=== PATIENT | male | born 1990 | race Two or more races ===

== ENCOUNTER 2023-05-01 21:42 | Emergency (ER) | payer BC, SELFPAY ==
[2023-05-01 21:47] VITALS: BP 178/102; PULSE 82; RESP 18; TEMP 36.9; O2SAT 100; BMI 28.1
[2023-05-01 21:49] VITALS: BP 178/102
[2023-05-01 21:52] VITALS: BP 162/100
--- NOTE | 2023-05-01 22:01 | PC.NURSE ---
pt presents to ED because patient states that he keeps having head rushes. when asking patient to elaborate pt states that he has been having the head rushes and feels like his heart is racing on and off for the last year. pt states that it has been worse over the last couple days. pt states that he thinks it may be panic attacks because he did start a new job and has been taking on different roles throughout his job and thinks it may be related. pt does not have a history of panic attacks.
--- NOTE | 2023-05-01 22:11 | ECG_ITS ---
[facility] Test Date: 2023-05-01 Pat Name: FARTUN LANDRY Department: Room: - Gender: Male Home Care Chaplain: : 1990 Requested By: [id number] Order Number: [id number] Reading MD: JATINDER LLANOS Measurements Intervals [place] Rate: 84 P: 73 PA: 142 QRS: 87 QRSD: 96 T: 47 QT: 358 QTc: 399 Interpretive Statements 1100 Sinus rhythm 9110 normal ECG No previous ECG available for comparison Electronically Signed On 05-02-2023 7:06:57 EDT by JATINDER LLANOS
--- NOTE | 2023-05-01 22:12 | ED.GENADUL1 ---
HPI - General Adult General Chief complaint: Neuro Symptoms/Deficit Stated complaint: lightheadness, panic Time Seen by Provider: 05/01/23 21:52 Source: patient Mode of arrival: walk-in History of Present Illness HPI narrative: This 32-year-old male who does not have a family physician presents for evaluation of intermittent episodes of head cao he states that out of the blue he will have a rushing sensation in the back of his head. Approximately a year ago when he was laced in a position at work that caused him some anxiety. Since that time he has had several additional episodes. He states at times he feels like his heart is beating fast and he has to sit down. He has not had any syncopal events. He does not have a headache. He has no associated blurred vision, slurred speech and weakness numbness or tingling. His blood pressure was noted to be elevated at triage but he states he has not checked his blood pressure during these episodes. He does not have any neck or back pain. He states sometimes he gets numbness and tingling in his hands. He has no chest pain or shortness of breath. He does not smoke cigarettes but uses a vape pen. He is here with his mother who denies any family history of any neurologic conditions. Related Data Home Medications Medication Instructions Recorded Confirmed No Known Home Medications 05/01/23 05/01/23 Allergies Allergy/AdvReac Type Severity Reaction Status Date / Time No Known Drug Allergies Allergy Verified 05/01/23 21:51 Review of Systems ROS Status of ROS 10 or more systems reviewed and unremarkable except as noted in history and below [facility] Social History Smoking status: Current every day smoker Exam Narrative Exam Narrative: Nurses note and vital signs reviewed and patient is not hypoxic. Blood pressure noted to be elevated at 162/100 General: Alert, nontoxic, mildly anxious, moderately overweight adult male, GCS 15, no respiratory distress Skin: Warm, dry, no pallor noted. There is no rash noted. Head: Normocephalic, atraumatic Eye: Normal conjunctiva, no drainage, EOMI. PERRL, Vision grossly intact Ears, Nose, Mouth, and Throat: oral mucosa is moist. Nares patent. Mouth without vesicles. Neck: supple, no meningearl signs or carotid bruits Cardiovascular: Regular Rate and Rhythm S1 S2, no murmurs rubs or gallops appreciated Respiratory: Patient is in no distress, no accessory muscle use, lungs are clear to auscultation, no wheezing, rales or rhonchi Back: non-tender, no CVA tenderness bilaterally to percussion. GI: Normal bowel sounds, no tenderness to palpation, no masses appreciated. No rebound, guarding, or rigidity noted. Musculoskeletal: The patient has no evidence of calf tenderness, no pitting edema, symmetrical pulses noted bilaterally Neurological: A&O x4, normal speech, Upper and lower extremity strength and sensation are intact, negative pronator drift, positive rapid alternating hand movements, no facial droop speech is clear Psychiatric: Cooperative Constitutional Vital Signs, click to edit/add: Last Vital Signs Temp 98.4 F 05/01/23 21:47 Pulse 82 05/01/23 21:47 Resp 18 05/01/23 21:47 BP 162/100 H 05/01/23 21:52 Pulse Ox 100 05/01/23 21:47 O2 Del Method Room Air 05/01/23 21:47 Course Vital Signs Vital signs: Vital Signs Temperature 98.4 F 05/01/23 21:47 Pulse Rate 82 05/01/23 21:47 Respiratory Rate 18 05/01/23 21:47 Blood Pressure 178/102 H 05/01/23 21:47 Pulse Oximetry 100 05/01/23 21:47 Oxygen Delivery Method Room Air 05/01/23 21:47 Temperature 98.4 F 05/01/23 21:47 Pulse Rate 82 05/01/23 21:47 Respiratory Rate 18 05/01/23 21:47 Blood Pressure 162/100 H 05/01/23 21:52 Pulse Oximetry 100 05/01/23 21:47 Oxygen Delivery Method Room Air 05/01/23 21:47 Medical Decision Making MDM Narrative Medical decision making narrative: This 32-year-old male who is moderately overweight and uses a vape Once for evaluation of intermittent episodes of a rushing sensation in the back of his head. He states the symptoms started earlier this year when he was promoted to a new job that was stressful for him. He has had several additional episodes of that. He does not know if he has high blood pressure was noted to have high blood pressure at triage. He states that when he gets these episodes he has palpitations. He denies any pattie chest pain dizziness or syncope. Besides his elevated blood pressure his vital signs are stable. His physical exam is benign. His neuro exam is normal. He has a normal EKG at 84 beats for minute. An IV was placed and he was medicated with IV fluids and a cardiac workup including CRP, troponin, CBC with differential and comprehensive metabolic profile was ordered. The studies are normal. CT scan of the brain was ordered to rule out any neurologic component to these symptoms. CT scan is normal. I was considering that his blood pressure may be causing his symptoms and repeated his blood pressure and it is 139/69. At that point, I feel that referral to outpatient family medicine is a better alternative than initiating a blood pressure medication. This was discussed with him and he verbalizes understanding. Medical Records Medical records narrative: MRN: [facility]:[id number] date: 1990 Sex: M Assigned Patient Location: ER Current Patient Location: Accession/Order Number: [id number] Exam Date: 05/01/2023 21:52 Report Date: 05/01/2023 23:11 At the request of: ILDA MARKER Procedure: CT head/brain wo con EXAMINATION: CT head/brain wo con HISTORY: head cao complaint - TECHNIQUE: CT head without contrast. All CT scans at this facility use dose modulation, iterative reconstruction, and/or weight based dosing when appropriate to reduce radiation dose to as low as reasonably achievable. COMPARISON: Head CT 08/06/2013 FINDINGS: The cazares-white matter differentiation is preserved. No hydrocephalus, midline shift, extra-axial fluid collection or intracranial hemorrhage. Mastoids and the layers are clear. Imaged paranasal sinuses and orbits are intact. The calvarium, skull base and osseous structures of the imaged face are intact. Scalp soft tissues are preserved. IMPRESSION: No acute intracranial process Lab Data Lab results reviewed: Yes I reviewed the patient's lab results Lab results narrative: Labs are normal Labs: Lab Results 05/01/23 Range/Units 21:55 WBC 8.4 (4.0-11.0) 10^3/uL RBC 4.55 L (4.70-6.10) 10^6/uL Hgb 14.2 (14.0-18.0) g/dL Hct 41.7 L (42.0-54.0) % MCV 91.6 (80.0-94.0) fL MCH 31.2 (25.9-34.0) pg MCHC 34.1 (29.9-35.2) g/dL RDW 11.9 (11.0-15.0) % Plt Count 289 (150-450) 10^3/uL MPV 8.6 L (9.5-13.5) fL Neut % (Auto) 65.5 (43.0-75.0) % Lymph % (Auto) 21.9 (20.5-60.0) % Gaines % (Auto) 9.9 (1.7-12.0) % Eos % (Auto) 1.7 (0.9-7.0) % Baso % (Auto) 0.6 (0.2-2.0) % Neut # (Auto) 5.5 (1.4-6.5) 10^3/uL Lymph # (Auto) 1.8 (1.2-3.8) 10^3/uL Gaines # (Auto) 0.8 (0.3-0.8) 10^3/uL Eos # (Auto) 0.1 (0.0-0.7) 10^3/uL Baso # (Auto) 0.1 (0.0-0.1) 10^3/uL Abs Immat Gran (auto) 0.03 (0.00-0.03) 10^3/uL Imm/Tot Granulo (auto) 0.4 (0.0-0.5) % Sodium 139 (136-145) mmol/L Potassium 3.6 (3.5-5.1) mmol/L Chloride 103 (98-107) mmol/L Carbon Dioxide 25.9 (21.0-32.0) mmol/L Anion Gap 13.7 BUN 11.0 (7.0-18.0) mg/dL Creatinine 0.98 (0.70-1.30) mg/dL Est GFR ( Amer) >60 (>=60) Est GFR (Non-Af Amer) >60 (>=60) BUN/Creatinine Ratio 11.2 Glucose 99 (74-106) mg/dL Lactate 1.6 (0.4-2.0) mmol/L Calcium 8.1 L (8.5-10.1) mg/dL Total Bilirubin 0.4 (0.2-1.0) mg/dL AST 20 (15-37) U/L ALT 28 (16-63) U/L Alkaline Phosphatase 62 (46-116) U/L Troponin I High Sens 4.5 (4.0-76.1) pg/mL C-Reactive Protein <1.0 (<=1.0) mg/dL Total Protein 7.7 (6.4-8.2) g/dL Albumin 3.7 (3.4-5.0) g/dL Globulin 4.0 g/dL Albumin/Globulin Ratio 0.9 ECG Data Attestation: I personally reviewed and interpreted this ECG as follows: (Sinus rhythm at 84 beats for minute, normal axis, normal intervals, no acute ST segment elevation or T-wave inversion) Discharge Plan Discharge Chief Complaint: Neuro Symptoms/Deficit Clinical Impression: Elevated blood pressure reading Patient Disposition: Home, Self-Care Time of Disposition Decision: 23:22 Condition: Good Prescriptions / Home Meds: No Action No Known Home Medications Instructions: Hypertension (ED) Stand Alone Forms: Portal Instructions Referrals: Physician,Non-Staff, MD [Primary Care Provider] - 1 week
[2023-05-01] MEDS: 0.9 % SODIUM CHLORIDE 1,000 ML 1000 ML IV (22:23)
[2023-05-01 22:32] LABS: Basophils Absolute Auto 0.1 10^3/uL (0.0-0.1); Basophils Percent Auto 0.6 % (0.2-2.0); Eosinophils Absolute Auto 0.1 10^3/uL (0.0-0.7); Eosinophils Percent Auto 1.7 % (0.9-7.0); Hematocrit 41.7 % (42.0-54.0); Hemoglobin 14.2 g/dL (14.0-18.0); Immature Granulocytes Abs Auto 0.03 10^3/uL (0.00-0.03); Immature Granulocytes Pct Auto 0.4 % (0.0-0.5); Lymphocytes Absolute Auto 1.8 10^3/uL (1.2-3.8); Lymphocytes Percent Auto 21.9 % (20.5-60.0); Mean Corpuscular HGB Conc 34.1 g/dL (29.9-35.2); Mean Corpuscular Hemoglobin 31.2 pg (25.9-34.0); Mean Corpuscular Volume 91.6 fL (80.0-94.0); Mean Platelet Volume 8.6 fL (9.5-13.5); Monocytes Absolute Auto 0.8 10^3/uL (0.3-0.8); Monocytes Percent Auto 9.9 % (1.7-12.0); Neutrophils Absolute Auto 5.5 10^3/uL (1.4-6.5); Neutrophils Percent Auto 65.5 % (43.0-75.0); Platelet Count 289 10^3/uL (150-450); Red Blood Count 4.55 10^6/uL (4.70-6.10); Red Cell Distribution Width 11.9 % (11.0-15.0); White Blood Count 8.4 10^3/uL (4.0-11.0)
--- NOTE | 2023-05-01 22:40 | CT_ITS ---
The [address] [address] Patient Name: FARTUN LANDRY MRN: [id number] date: 1990 Sex: M Assigned Patient Location: ER Current Patient Location: ER Accession/Order Number: [id number] Exam Date: 05/01/2023 21:52 Report Date: 05/01/2023 23:11 At the request of: ILDA MARKER Procedure: CT head/brain wo con EXAMINATION: CT head/brain wo con HISTORY: head cao complaint - TECHNIQUE: CT head without contrast. All CT scans at this facility use dose modulation, iterative reconstruction, and/or weight based dosing when appropriate to reduce radiation dose to as low as reasonably achievable. COMPARISON: Head CT 08/06/2013 FINDINGS: The cazares-white matter differentiation is preserved. No hydrocephalus, midline shift, extra-axial fluid collection or intracranial hemorrhage. Mastoids and the layers are clear. Imaged paranasal sinuses and orbits are intact. The calvarium, skull base and osseous structures of the imaged face are intact. Scalp soft tissues are preserved. CT/CT head/brain wo con IMPRESSION: No acute intracranial process. Electronically authenticated by: WILFRED TAMAYO Date: 05/01/2023 23:11
[2023-05-01 22:50] LABS: Alanine Aminotransferase 28 U/L (16-63); Albumin Globulin Ratio 0.9; Albumin Level 3.7 g/dL (3.4-5.0); Alkaline Phosphatase 62 U/L (46-116); Anion Gap 13.7; Aspartate Amino Transferase 20 U/L (15-37); BUN Creatinine Ratio 11.2; Bilirubin Total 0.4 mg/dL (0.2-1.0); Calcium 8.1 mg/dL (8.5-10.1); Carbon Dioxide 25.9 mmol/L (21.0-32.0); Chloride 103 mmol/L (98-107); Estimated GFR (African America >60 (>=60); Estimated GFR (Non-African Ame >60 (>=60); Glucose 99 mg/dL (74-106); Lactate/Lactic Acid 1.6 mmol/L (0.4-2.0); Potassium 3.6 mmol/L (3.5-5.1); Sodium 139 mmol/L (136-145); Total Protein 7.7 g/dL (6.4-8.2); Troponin I High Sensitivity 4.5 pg/mL (4.0-76.1)
[2023-05-01 22:56] LABS: C Reactive Protein <1.0 mg/dL (<=1.0)
[2023-05-01 23:18] VITALS: BP 131/89
== END 2023-05-01 23:34 | disposition home or self-care (01) ==
PROVIDERS: Emergency Provider Emergency Medicine; Family Provider Nurse Practitioner Primary Care
DX: I10 Essential (primary) hypertension (principal); F17.290 Nicotine dependence, other tobacco product, uncomplicated
CPT/HCPCS: 36415; 70450; 80053; 83605; 84484; 85025; 86140; 93005; 99285

== ENCOUNTER 2025-05-06 19:56 | Emergency (ER) | payer OTHER, SELFPAY ==
--- OUTSIDE RECORDS SUMMARY | 2025-04-25 07:15 | XMS_ITS ---
Author Organization [employer] [facility] vices Address [address] [place], [place] [id number] Care Team Providers Care Alteration Tailor Name Role Phone Dhara Galan Primary Care Provider [phone] Allergies No Known Allergies REASON FOR VISIT f/u HTN, Discuss blood work Medications Medication SIG (Take, Route, Frequency, Duration) Notes Start Date End Date Status Vitamin C 1000 MG 1 tablet Orally Once a day Active Fenofibrate 67 MG 1 capsule with a maurice l Orally Once a day; Duration: 90 days 11/05/2024 Active Multivitamin - 1 tablet Orally Once a day Active Magnesium Oxide -Mg Supplement 400 (240 Mg) MG TAKE 1 TABLET BY MOUTH EVERY DAY Oral; Duration: 90 Days Active Losartan Potassium 25 MG 1 tablet Orally Once a day; Duration: 90 days Active Losartan Potassium 25 MG 1 tablet Orally Once a day; Duration: 90 days Active Fish Oil 1000 MG 1 capsule Orally martina ly; Duration: 90 days Active Social History Sex Assigned At : Social History Observation Description Sex Assigned At Male Vital Signs Temperature 97.8 degrees Fahrenheit 04/25/20 25 Weight 203 lbs 04/25/2025 Height 68.50 in 04/25/2025 BMI 30.41 kg/m2 04/25/2025 Blood pressure systolic 141 mm Hg 04/25/20 25 Blood pressure diastolic 98 mm Hg 025 Heart Rate 74 /min 04/25/2025 Respiratory Rate 18 /min 04/25/2025 Oximetry 100 % 04/25/2025 Weight-kg 92.08 kg 04/25/2025 Height-cm 173.99 cm 04/25/2025 Cyril Herrera 025 11:04:08 AM EDT > Encounters Encounter Location Date Provider Diagnosis Main [address] [place], [place] [id number] 04/25/2025 Dhara Galan Hypertriglyceridemia E78.1 ; Hypertension I10 ; BMI 30.0-30.9,adult Z68.30 and Obesity, Class I, BMI 30-34.9 E66.811 Assessments Encounter Date Diagnosis (ICD Code) Assessment Notes Treatment Notes Treatment Clinical Notes Section Notes 04/25/2025 Hypertriglyceridemia (ICD-10 - E78.1) Pt encouraged to continue working on healthy diet and exercise Continue w/ current medications, Pt has not started taking Fenofibrate from when it was prescribed by previous PCP a few months ago. Encouraged pt to take in order to lower Triglycerides, comparison of recent lab work shows an increase in Triglycerides F/U 3 months or PRN 04/25/2025 Hypertension (ICD-10 - I10) Continue current medication Pt elevated BP in-office Denies symptoms Declines medication change at this time, would like to eventually get off of BP medication, just wants to take Losartan 25mg at this time. Encouraged healthy diet and exercise Pt to purchase a new BP cuff at home and monitor values F/U 3 months or PRN 04/25/2025 BMI 30.0-30.9,adult (ICD-10 - Z68.30) 04/25/2025 Obesity, Class I, BM I 30-34.9 (ICD-10 - E66.811) Plan Of Treatment Medication Medication Name Sig Start Date Stop Date Notes Fenofibrate 67 MG 1 capsule with a maurice l Orally Once a day; Duration: 90 days 11/05/2024 Losartan Potassium 25 MG 1 tablet Orally Once a day; Duration: 90 days Fish Oil 1000 MG 1 capsule Orally martina ly; Duration: 90 days Treatment Notes Assessment Notes Hypertriglyceridemia Pt encouraged to continue working on healthy diet and exercise Continue w/ current medications, Pt has not started taking Fenofibrate from when it was prescribed by previous PCP a few months ago. Encouraged pt to take in order to lower Triglycerides, comparison of recent lab work shows an increase in Triglycerides F/U 3 months or PRN Hypertension Continue current medication Pt elevated BP in-office Denies symptoms Declines medication change at this time, would like to eventually get off of BP medication, just wants to take Losartan 25mg at this time. Encouraged healthy diet and exercise Pt to purchase a new BP cuff at home and monitor values F/U 3 months or PRN Future Test Test Name Order Date LIPID PANEL WITH REFLEX TO DIRECT LDL COMPREHENSIVE METABOLIC PANEL (AMA) 08/2024 Next Appt Details Follow Up: 3 months HTN & Tr iglycerides, Reason: Provider Name:Humaira teresa, 05/26/2025 09:30:00 AM, [address] [place] [address], [id number], Provider Name:Dhara Galan , 08/01/2025 09:30:00 AM, [address] [place] [address], [id number], Progress Notes * Rohith MUHAMMADDOB:[birth year] (34 yo M)Acc No.[id number]:04/25/2025 Medical Note Patient: Rohith RENEE Provider: Elise Galan :1990 A ge:34 Y S ex:Male Date:04/25/2025 Address:[address] [place], [place] [id number] Subjective: * Chief Complaints: * f /u HTN, Discuss blood work * HPI: I nterim History: HYPERTENSION / HYPERTRIGLYCERIDEMIA Medication: Losartan 25mg 1QD, Fenofibrate 67mg 1QD Pt would like to take Beet Chewables at this time Home BP readings: Pt does own a cuff, needs to buy a new one. Diet: Pt does not eat out often, some greasy foods at home Exercise: Pt has been trying to work out more w/ cardio Pt has quit drinking a year ago, drinks pop here and there as well Patient denies headache, vision changes, chest pain, shortness of breath/difficulty breathing, decreased exercise tolerance, dizziness/lightheadedness, syncope/near syncope, orthopnea, fatigue, and sweats. * ROS: N egative except mentioned above in the HPI. * Medical History: * Surgical History: W isdom Teeth Extraction * Hospitalization/Major Diagno stic Procedure: D enies Past Hospitalization * Family History: F ather: alive. M other: alive. P aternal Grand Father: . P aternal Grand Mother: alive. M aternal Grand Father: . M aternal Grand Mother: alive. Family hx unknown. * Medications: T akingVitamin C 1000 MG Tablet 1 tablet Orally Once a day Multivitamin - Tablet 1 tablet Orally Once a day Magnesium Oxide -Mg Supplement 400 (240 Mg) MG Tablet TAKE 1 TABLET BY MOUTH EVERY DAY Oral Losartan Potassium 25 MG Tablet 1 tablet Orally Once a day Fish Oil 1000 MG Capsule TAKE 1 CAPSULE BY MOUTH EVERY DAY FOR 90 DAYS Taking Vitamin C 1000 MG Tablet 1 tablet Orally Once a day Taking Multivitamin - Tablet 1 tablet Orally Once a day Taking Magnesium Oxide -Mg Supplement 400 (240 Mg) MG Tablet TAKE 1 TABLET BY MOUTH EVERY DAY Oral Taking Losartan Potassium 25 MG Tablet 1 tablet Orally Once a day Taking Fish Oil 1000 MG Capsule TAKE 1 CAPSULE BY MOUTH EVERY DAY FOR 90 DAYS Not-Taking/PRNFenofibrate 67 MG Capsule 1 capsule with a meal Orally Once a day Medication List reviewed and reconciled with the patientNot-Taking/PRN Fenofibrate 67 MG Capsule 1 capsule with a meal Orally Once a day Medication List reviewed and reconciled with the patient * Allergies: N .K.D.A.no[Allergies Verified] Objective: * Vitals: T emp:97.8F, Wt:203lbs, Ht: 68.50 in, BMI:30.41Index, BP: 134/94 mm Hg,141/98mm Hg, HR:74/min, RR:18/min, Pain scale:01-10, Oxygen sat %:100%, Wt-k.08 kg, Ht- cm: 173.99 cm, Body Surface Area: 2.11. Cyril Herrera 04/25/2025 11:04:08 AM EDT >. * Examination: C QM Exceptions: Currently taking Aspirin: A spirin Use: N o G eneral Examination: General appearance: a lert, pleasant, well-nourished and in no acute distress. Head: n ormocephalic, atraumatic. Heart: r egular rate and rhythm without murmurs, gallops, clicks or rubs. Lungs: c lear to auscultation bilaterally, with good air movement and no rales, rhonchi or wheezes. Psych: a lert and oriented x 3 , cooperative with exam,?normal affect / mood , speech is clear and coherent. Assessment: * Assessment: 1. H ypertriglyceridemia - E78.1 (Primary) 2 . H ypertension - I10 ? 3 . B DE 30.0-30.9,adult - Z68.30 4 . O besity, Class I, BMI 30-34.9 - E66.811 Plan: * Treatment: 2. H ypertension Refill Losartan Potassium Tablet, 25 MG, 1 tablet, Orally, Once a day, 90 days, 90 Tablet, Refills 1. Notes: Continue current medication Pt elevated BP in-office Denies symptoms Declines medication change at this time, would like to eventually get off of BP medication, just wants to take Losartan 25mg at this time. Encouraged healthy diet and exercise Pt to purchase a new BP cuff at home and monitor values F/U 3 months or PRN * Procedure Codes: 3 077F HTN SYST BP >= [id number] HTN DIAST BP >= 90 * Preventive Medicine: Counseling: C ommunication to patient: Counseling for nutrition provided Y es Counseling for physical activity provided Y es * Follow Up: 3 months HTN & Triglycerides * Billing Information: * Visit Code: 80356 Office Visit Est 30-39 minutes. * Procedure Codes: 3077F HTN SYST BP >= 140. 3080F HTN DIAST BP >= 90. * Sign off status: Completed true * Provider: Elise Galan Date: 0 04/25/2025 Generated for Israel perales/Aimee/Con on: 08:02 PM EDT History and Physical Notes * Examination Category Sub-Category Detail Notes Category Not es General Examination General appearance: alert, p leasant, well-nourished and in no acute distress Head: normocephalic, atrau matic Heart: regular rate and rhy thm without murmurs, gallops, clicks or rubs Lungs: clear to auscultatio n bilaterally, with good air movement and no rales, rhonchi or wheezes Psych: alert and oriented x 3 , cooperative with exam, normal affect / mood , speech is clear and coherent CQM Exceptions Currently taking Aspirin: Aspirin Use:: No
--- OUTSIDE RECORDS SUMMARY | 2025-05-06 20:02 | XMS_ITS | Clinical Summary ---
Author Organization [facility] Healthcare Address [address] [place] [address] Care Team Providers Care Cloth Shrinker Name Role Phone Edelmira Turner HEALTH PLAN SPECIALIST Unavailable Allergies No known active allergies Medications losartan (Cozaar) 25 MG tablet Take 25 mg by mouth Daily 4 Active omega-3 (fish oil) 1000 MG capsule Take 1 capsule by mouth 1 (one) time each day at the same time 3 Active clotrimazole (Lotrimin) 1 % external solutionIndicat ions:Other infective chronic otitis externa of left ear 4 drops to left ear 2 times daily for 10 days 10 mL 1 4 Active Multiple Vitamin (Multi Vitamin) tablet 1 (one) time each day at the same time Active Ascorbic Acid (vitamin C) 1000 MG tablet 1 (one) time each day at the same time Active magnesium oxide (Mag-Ox) 400 (240 Mg) MG tablet Take 400 mg by mouth Daily 5 Active magnesium oxide (Mag-Ox) 400 mg tabletIndicatio ns:Motor tic disorder Take 1 tablet (400 mg) by mouth Daily 90 tablet 3 5 07/17/20 25 Active magnesium oxide (Mag-Ox) 400 mg tabletIndicatio ns:Motor tic disorder Take 1 tablet (400 mg) by mouth Daily 30 tablet 11 4 04/18/20 25 Discontinu ed(Reorder ) Active Problems Problem Noted Date Diagnosed Date Motor tic disorder 10/17/2024 Anxiety 07/24/2024 BMI 30.0-30.9,adult 07/24/2024 History of marijuana use 07/24/2024 Hx of cocaine abuse 07/24/2024 Hypertriglyceridemia 07/24/2024 Moderate alcohol use disorder 07/24/2024 Non-smoker 07/24/2024 Hypertension 12/10/2023 Chronic otitis externa of left ear 12/10/2023 Epistaxis 07/11/2022 Encounters Date Type Department Care Team Description 04/18/2025 10:00 AM EDT Office Visit [facility] [address] [place] [phone] Celso Munoz MD Motor tic disorder (Primary Dx) 04/18/2025 Bamboo flowsheet [facility] [address] [place] [address] Celso Munoz MD 04/18/2025 Travel from Last 3 Months Family History Medical History Relation Name Comments No Known Problems Father No Known Problems Mother Relation Name Status Comments Father Mother Social History Tobacco Use Types Packs/Day Years Used Date Smoking Tobacco: Former Cigarettes 0.3 10 0 04/2013 - 04/2023 Smokeless Tobacco: Never Tobacco Cessation:Counseling Given: Not Answered Alcohol Use Standard Drinks/Week Comments Not Currently 0 (1 standard drink = 0.6 oz pur e alcohol) Sex and Gender Information Value Date Recorded Sex Assigned at Not on file Legal Sex Male 11:54 AM EST Gender Identity Not on file Sexual Orientation Not on file Last Filed Vital Signs Vital Sign Reading Time Taken Comments Blood Pressure 130/88 04/18/2025 10:07 AM EDT Pulse - - Temperature - - Respiratory Rate 18 04/18/2025 10:07 AM EDT Oxygen Saturation 98% 04/18/2025 10:07 AM EDT Inhaled Oxygen Concentration - - Weight 93.9 kg (207 lb) 04/18/2025 10:07 AM EDT Height 175.3 cm (5' 9 ) 04/18/2025 10:07 AM EDT Body Mass Index 30.57 04/18/2025 10:07 AM EDT Plan of Treatment Upcoming Encounters Date Type Department Care Team (Late st Contact Info) Description 07/21/2025 10:20 AM EST Office Visit [facility] [address] [place] [address] Celso Munoz MD [id number] [facility] [address] [address] Insurance [employer] Care Teams Cloth Shrinker Relationship Specialty Start Date End Date Edelmira Turner NP [address] [place] [address] Referring Physician Family Medicine 04/26/24
--- OUTSIDE RECORDS SUMMARY | 2025-05-06 20:02 | XMS_ITS | Clinical Summary ---
Author Organization [facility] Address [facility] [id number] [address] [place] [address] Care Team Providers Care Escalator Installer Name Role Phone Unavailable Primary Care Provider Unavailabl e Allergies Active Allergy Reactions Criticality Noted Date Comments No Known Drug Allergies 10/09/2016 Medications clindamycin (CLEOCIN) 150 mg capsuleIndicati ons:Acute otitis externa of both ears, unspecified type Take 1 capsule by mouth twice daily for 10 days 20 capsule 8 Active Additional Information Patient not taking.Reported on 07/11/2022 neomycin-polymy karina-dexamethaso ne (MAXITROL) 3.5mg/mL-10,000 unit/mL-0.1 % ophthalmic suspensionIndic ations:Acute otitis externa of both ears, unspecified type Instilled 3-4 drops in the right ear 3 times daily. 5 mL 8 Active Additional Information Patient not taking.Reported on 07/11/2022 mometasone (ELOCON) 0.1 % ointmentIndicat ions:Acute eczematoid otitis externa of left ear Apply a thin layer to the affected layer twice daily until improved. 15 g 8 Active Additional Information Patient not taking.Reported on 07/11/2022 mupirocin (BACTROBAN) 2 % ointmentIndicat ions:Epistaxis Applied intranasally bilaterally 2 times daily 15 g 2 Active sodium chloride (OCEAN) 0.65 % nasal sprayIndication s:Epistaxis Instill 1-2 sprays intranasally bilaterally 3 times daily 15 mL 12 2 Active Active Problems Problem Noted Date Diagnosed Date Epistaxis 07/11/2022 Resolved Problems Problem Noted Date Diagnosed Date Resolved Date Right ear impacted cerumen 07/11/2022 0 10/10/2022 Eczematoid otitis externa of left ear 08/26/2017 07/11/2022 Cyst of ear canal 08/26/2017 09/18/2017 Family History Medical History Relation Name Comments Cancer Maternal Grandfather Cancer Maternal Grandmother Hypertension Maternal Grandmother Seizures Mother Relation Name Status Comments Maternal Grandfather Maternal Grandmother Mother Social History Tobacco Use Types Packs/Day Years Used Date Smoking Tobacco: Former Cigarettes 0.5 4 Smokeless Tobacco: Never Tobacco Cessation:Counseling Given: Not Answered Alcohol Use Standard Drinks/Week Comments Yes 0 (1 standard drink = 0.6 oz pur e alcohol) Childcare Answer Date Recorded Childcare Unknown 01/13/2019 Employment Answer Date Recorded Employment Unknown 01/13/2019 Hunger Screening Answer Date Recorded Within the past 12 months we worried whether our food would run out before we got money to buy more. Never True 10/10/2022 Within the past 12 months th e food we bought just didn't last and we didn't have money to get more. Never True 10/10/2022 Purpose - Life Answer Date Recorded Purpose and direction in life Unknown Sex and Gender Information Value Date Recorded Sex Assigned at Not on file Legal Sex Male 12:04 PM EDT Gender Identity Not on file Sexual Orientation Not on file Last Filed Vital Signs Vital Sign Reading Time Taken Comments Blood Pressure 122/64 04/02/2018 2:42 PM EDT Pulse - - Temperature - - Respiratory Rate - - Oxygen Saturation - - Inhaled Oxygen Concentration - - Weight 88.9 kg (196 lb) 10/10/2022 9:39 AM EST Height 175.3 cm (5' 9 ) 10/10/2022 9:39 AM EST Body Mass Index 28.94 10/10/2022 9:39 AM EST Plan of Treatment Health Maintenance Due Date Last Done Comments Depression Screening 2002 Tobacco Screening 2002 DTaP,Tdap and Td Vaccines (8 - Td or Tdap) 01/11/2021 01/11/2011, 09/01/2010, 03/18/2002, Additional history exists Adult BMI Screening 10/11/2023 10/10/2022 Influenza Vaccine 04/04/2025 05/09/2014, 05/01/2011 Medical Devices Not on file Insurance
[2025-05-06 20:04] VITALS: BP 150/100; PULSE 100; TEMP 37.1; O2SAT 100; BMI 30.1
--- NOTE | 2025-05-06 20:08 | ED.GENADUL1 ---
HPI HPI - General Adult General Chief complaint: Allergic Reaction Stated complaint: POSS ALLERGIC REACTION Time Seen by Provider: 05/06/25 20:04 Source: patient Mode of arrival: walk-in Limitations: no limitations History of Present Illness HPI narrative: 34-year-old male presented to the emergency department for swelling to his left lower lip. This started about 20 or 30 minutes ago. He states that something bit him there and he grabbed it and he felt it in his fingers but he did not see it and he threw it away. He believes it was a spider. He states it was too small to be a bee. He states that there was definitely something there that bit him. He has been on losartan for 3 or 4 months. No swelling in the tongue, just in the localized area in the left lower lip laterally where he was bitten. Related Data Home Medications ?Medication ?Instructions ?Recorded ?Confirmed fenofibrate micronized 67 mg 67 mg PO DAILY 05/06/25 05/06/25 capsule losartan 25 mg tablet 25 mg PO DAILY 05/06/25 05/06/25 magnesium oxide 400 mg (241.3 mg 400 mg PO DAILY 05/06/25 05/06/25 magnesium) tablet omega-3 300 mg-dha 120 mg-epa 180 1 cap PO DAILY 05/06/25 05/06/25 mg-fish oil 1,000 mg capsule Previous Rx's ?Medication ?Instructions ?Recorded prednisone 20 mg tablet 20 mg PO DAILY 3 days #3 tabs 05/06/25 Allergies Allergy/AdvReac Type Severity Reaction Status Date / Time No Known Drug Allergies Allergy Verified 05/01/23 21:51 Opioid HPI Opioid Management Most Recent Opioid Data: Last Pain Scale 3 Today, 20:04 Review of Systems ROS Narrative A ten point review of systems is negative except as noted above. PFSH PFSH Social History Smoking status: Current every day smoker Little interest or pleasure in doing things: not at all Feeling down, depressed, or hopeless: not at all Exam Narrative Exam Narrative: Nurses note and vital signs reviewed and patient is not hypoxic. General:The patient appears well and in no apparent distress.Patient is resting comfortably on cart. Skin:Warm, dry, no pallor noted.There is no rash noted. Head:Normocephalic, atraumatic Eye: Normal conjunctiva, no drainage Ears, Nose, Mouth, and Throat: oral mucosa is moist. Nares patent. He has localized swelling to the left lower lip laterally. Tongue not swollen. He is handling his oral secretions well. Cardiovascular:Regular Rate and Rhythm Respiratory:Patient is in no distress, no accessory muscle use, lungs are clear to auscultation, no wheezing, rales or rhonchi Back:non-tender GI: Soft and nontender Musculoskeletal: The patient has no evidence of calf tenderness, no pitting edema, symmetrical pulses noted bilaterally Neurological:A&O, normal speech Psychiatric:Cooperative Constitutional Vital Signs, click to edit/add: Last Vital Signs Temp 98.7 F 05/06/25 20:04 Pulse 93 H 05/06/25 21:04 Resp 16 05/06/25 21:04 BP 120/85 05/06/25 21:04 Pulse Ox 97 05/06/25 21:04 O2 Del Method Room Air 05/06/25 21:04 Course Vital Signs Vital signs: Vital Signs Temperature 98.7 F 05/06/25 20:04 Pulse Rate 100 H 05/06/25 20:04 Respiratory Rate 18 05/06/25 20:04 Blood Pressure 150/100 H 05/06/25 20:04 Pulse Oximetry 100 05/06/25 20:04 Oxygen Delivery Method Room Air 05/06/25 20:04 Temperature 98.7 F 05/06/25 20:04 Pulse Rate 93 H 05/06/25 21:04 Respiratory Rate 16 05/06/25 21:04 Blood Pressure 120/85 05/06/25 21:04 Pulse Oximetry 97 05/06/25 21:04 Oxygen Delivery Method Room Air 05/06/25 21:04 Medical Decision Making [facility] Narrative Medical decision making narrative: He was given IM Solu-Medrol and Benadryl with near complete resolution of his swelling. Ice pack was also applied. He is discharged home on 3-day course of prednisone. Treatment diagnosis and follow-up were discussed with the patient. At this point I do not suspect angioedema. Differential Diagnosis Differential Diagnosis: Spider bite, insect bite, angioedema Discharge Plan Discharge Chief Complaint: Allergic Reaction Clinical Impression: Accidental spider bite Patient Disposition: Home, Self-Care Time of Disposition Decision: 21:04 Condition: Good Mode of Transportation: Private Vehicle Prescriptions / Home Meds: New prednisone 20 mg tablet 20 mg PO DAILY 3 Days Qty: 3 0RF No Action fenofibrate micronized 67 mg capsule 67 mg PO DAILY losartan 25 mg tablet 25 mg PO DAILY magnesium oxide 400 mg (241.3 mg magnesium) tablet 400 mg PO DAILY omega 8-wlt-ghi-fish oil 300 mg (120 mg- 180mg)-1,000 mg capsule 1 cap PO DAILY Print Language: Persian Instructions: Insect Bite or Sting (ED) Referrals: Physician,Non-Staff, MD [Primary Care Provider] - 1 week
[2025-05-06] MEDS: DIPHENHYDRAMINE HCL 50 MG/ML VIAL IM (20:23)
[2025-05-06] MEDS: METHYLPREDNISOLONE SOD SUCC PF 125 MG/2 ML VIAL IM (20:23)
[2025-05-06 21:04] VITALS: BP 120/85; PULSE 93; O2SAT 97
== END 2025-05-06 21:16 | disposition home or self-care (01) ==
PROVIDERS: Emergency Provider Emergency Medicine; Family Provider Nurse Practitioner Primary Care
DX: S00.571A Other superficial bite of lip, initial encounter (principal); W57.XXXA Bitten or stung by nonvenomous insect and other nonvenomous arthropods, initial encounter; F17.200 Nicotine dependence, unspecified, uncomplicated
CPT/HCPCS: 96372; 99284; J1200; J2919